=== PATIENT | female | born 1990 | race African-American/Black ===

== ENCOUNTER 2024-08-13 00:18 | Emergency (ER) | payer MEDICAID ==
[~2024-08-13] VITALS: Ht 162.6 cm; Wt 46.0 kg
[~2024-08-13 00:18] MED LIST: CLON-493 PO; LORA-250 PO; PRAZ1CAP5 PO
[2024-08-13 00:36] VITALS: O2SAT 99
[2024-08-13 01:14] VITALS: BP 161/113; PULSE 105; RESP 18; O2SAT 98
[2024-08-13] MEDS ORDERED: KETOROLAC 15MG/ML VIAL IM ONE (01:45)
[2024-08-13] MEDS ORDERED: NAPR-1176 MT (01:50)
[2024-08-13] MEDS ORDERED: AMOX1TAB16 MT (01:50)
[2024-08-13] MEDS ORDERED: CHLO3800 TP (01:51)
[2024-08-13] MEDS ORDERED: DOXY100C5 MT (01:51)
[2024-08-13 02:56] VITALS: TEMP 98
[2024-08-13] MEDS: ACETAMINOPHEN 500MG TABLET PO ONE (02:56)
[2024-08-13] MEDS: CEFTRIAXONE SODIUM 500MG VIAL IM ONE (02:57)
== END 2024-08-13 03:30 | disposition home or self-care (01) ==
LOC: ER 00:18
DX: K08.89 Other specified disorders of teeth and supporting structures (principal); Z20.2 Contact with and (suspected) exposure to infections with a predominantly sexual mode of transmission; F41.9 Anxiety disorder, unspecified; Z79.1 Long term (current) use of non-steroidal anti-inflammatories (NSAID); Z79.899 Other long term (current) drug therapy
CPT/HCPCS: 99283; 81025; 96372; J0696